=== PATIENT | male | born 1975 | race Caucasian/White ===

== ENCOUNTER 2016-05-29 11:33 | Emergency (ER) | payer OTHER ==
[~2016-05-29] VITALS: Ht 177.8 cm; Wt 97.9 kg
[~2016-05-29 11:33] MED LIST: OMEP20TA PO
[2016-05-29 11:36] VITALS: TEMP 36.5; Ht 177.8 cm; Wt 97.9 kg
[2016-05-29] MEDS ORDERED: SODIUM CHLORIDE 0.9% 1000ML 1,000 ML IV STA ×2 (11:59→13:18)
--- NOTE | 2016-05-29 12:02 | EMERGENCY ROOM VISIT NOTE ---
History First contact with patient: 11:50 Chief Complaint: DIARRHEA Stated Complaint: DIARRHEA, WEAK Nursing Triage Summary: Triage note: pt reports 'i have had diarrhea since wednesday, my guts are churning and i can't stop going to the bathroom." History of Present Illness The patient is a 41 year old male who presents to the Emergency Room with complaints of diarrhea. The patient states his diarrhea started 4 days ago. He states he has had diarrhea 15-20 times daily. He reports diffuse crampy abdominal discomfort and rates his pain at 3/10. He reports generalized weakness and feeling tired. He denies any fevers or chills. He denies any nausea or vomiting. He denies any hematemesis, melena or hematochezia. He denies any urinary symptoms. 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 He denies any travel outside of the country. He denies any recent antibiotic use. He does not have any known sick contacts. Review of Systems A 10 system review of systems was completed with positives and pertinent negatives listed in the HPI. Past Medical/Surgical History Patient denies Social History Smoking Status: Never Smoker Housing Status: lives with family Occupation Status: employed Current/Historical Medications Scheduled Metronidazole (Flagyl), 500 MG PO TID Omeprazole (Omeprazole), 20 MG PO DAILY Allergies Coded Allergies: No Known Allergies (Unverified , 06/14/14) Physical Exam Vital Signs Date Time Temp Pulse Resp B/P Pulse Ox O2 Delivery O2 Flow Rate FiO2 05/29/16 14:09 73 18 122/85 97 Room Air 05/29/16 11:36 36.5 120 18 127/91 95 Room Air Physical Exam VITALS: Vitals are noted on the nurse's note and reviewed by myself. Vital signs stable. The patient is afebrile. GENERAL: This is a 41-year-old male, in no acute distress, nondiaphoretic, well- developed well-nourished. SKIN: The skin was without rashes, erythema, edema, or bruising. There is no tenting of the skin. Capillary reflex less than 2 seconds. HEAD: Normocephalic atraumatic. EARS: The external ears are normal in appearance. EYES: Pupils equal round and reactive to light and accommodation. Conjunctivae without injection, sclerae without icterus. Extraocular movements intact. NOSE: Patent, turbinates without inflammation or discharge. MOUTH: Mucous membranes moist. Tonsils are not enlarged. Pharynx without erythema or exudate. Uvula midline. Airway patent. Tongue does not deviate. NECK: Supple without nuchal rigidity. No JVD. HEART: Regular rate and rhythm without murmurs gallops or rubs. LUNGS: Clear to auscultation bilaterally without wheezes, rales or rhonchi. No retractions or accessory muscle use. ABDOMEN: Positive bowel sounds x 4 and hyperactive. Soft, nontender, without masses or organomegaly. MUSCULOSKELETAL: No muscle atrophy, erythema, or edema noted. Full range of motion in all extremities. Normal gait. Strength 5/5 throughout. NEURO: Patient was alert and oriented to person place and time. No focal neurological deficits. Medical Decision & Procedures Laboratory Results 05/29/16 12:07 Red Blood Count 5.27, Mean Corpuscular Volume 87.5, Mean Corpuscular Hemoglobin 33.0, Mean Corpuscular Hemoglobin Concent 37.7, Mean Platelet Volume 9.2, Neutrophils (%) (Auto) 49.6, Lymphocytes (%) (Auto) 37.3, Monocytes (%) (Auto) 11.3, Eosinophils (%) (Auto) 1.3, Basophils (%) (Auto) 0.5, Neutrophils # (Auto ) 3.03, Lymphocytes # (Auto) 2.28, Monocytes # (Auto) 0.69, Eosinophils # (Auto ) 0.08, Basophils # (Auto) 0.03 05/29/16 12:07 05/29/16 13:20 Test 05/29/16 12:03 05/29/16 12:07 05/29/16 13:20 Urine Color DK YELLOW Urine Appearance CLEAR (CLEAR) Urine pH 5.5 (4.5-7.5) Urine Specific [place] 1.033 (1.000-1.030) Urine Protein 1+ (NEG) Urine Glucose (UA) NEG (NEG) Urine Ketones NEG (NEG) Urine Occult Blood NEG (NEG) Urine Nitrite NEG (NEG) Urine Bilirubin 1+ (NEG) Urine Urobilinogen NEG (NEG) Urine Leukocyte Esterase NEG (NEG) Urine WBC (Auto) 1-5 /hpf (0-5) Urine RBC (Auto) 0-4 /hpf (0-4) Urine Hyaline Casts (Auto) 10-30 /lpf (0-5) Urine Epithelial Cells (Auto) >30 /lpf (0-5) Urine Bacteria (Auto) NEG (NEG) Urine Pathogenic Casts 1-5 GRANULAR CASTS /lpf (0) White Blood Count 6.11 K/uL (4.8-10.8) Red Blood Count 5.27 M/uL (4.7-6.1) Hemoglobin 17.4 g/dL (14.0-18.0) Hematocrit 46.1 % (42-52) Mean Corpuscular Volume 87.5 fL (80-100) Mean Corpuscular Hemoglobin 33.0 pg (25-34) Mean Corpuscular Hemoglobin Concent 37.7 g/dl (32-36) Platelet Count 226 K/uL (130-400) Mean Platelet Volume 9.2 fL (7.4-10.4) Neutrophils (%) (Auto) 49.6 % Lymphocytes (%) (Auto) 37.3 % Monocytes (%) (Auto) 11.3 % Eosinophils (%) (Auto) 1.3 % Basophils (%) (Auto) 0.5 % Neutrophils # (Auto) 3.03 K/uL (1.4-6.5) Lymphocytes # (Auto) 2.28 K/uL (1.2-3.4) Monocytes # (Auto) 0.69 K/uL (0.11-0.59) Eosinophils # (Auto) 0.08 K/uL (0-0.5) Basophils # (Auto) 0.03 K/uL (0-0.2) RDW Standard Deviation 40.3 fL (36.4-46.3) RDW Coefficient of Variation 12.6 % (11.5-14.5) Immature Granulocyte % (Auto) 0.0 % Immature Granulocyte # (Auto) 0.00 K/uL (0.00-0.02) Anion Gap 6.0 mmol/L (3-11) Est Creatinine Clear Calc Drug Dose 97.0 ml/min Estimated GFR () 87.8 Estimated GFR (Non- 75.7 BUN/Creatinine Ratio 14.1 (10-20) Calcium Level 9.1 mg/dl (8.5-10.1) Total Bilirubin 0.6 mg/dl (0.2-1) Alanine Aminotransferase (ALT/SGPT) 114 U/L (12-78) Alkaline Phosphatase 143 U/L (45-117) Total Protein 8.0 gm/dl (6.4-8.2) Albumin 4.0 gm/dl (3.4-5.0) Globulin 4.0 gm/dl (2.5-4.0) Albumin/Globulin Ratio 1.0 (0.9-2) Lipase 106 U/L (73-393) Aspartate Amino Transf (AST/SGOT) 53 U/L (15-37) Medications Administered Medications (Trade) Dose Ordered Sig/Geovanny Route Start Time Stop Time Status Last Admin Dose Admin Sodium Chloride (Nss 1000ml) 1,000 ml @ 999 mls/hr Q1H1M STAT IV 05/29/16 11:59 05/29/16 12:59 DC 05/29/16 11:59 999 MLS/HR Metronidazole (Flagyl Tab) 500 mg NOW STAT PO 05/29/16 13:43 05/29/16 13:45 DC 05/29/16 14:03 500 MG ED Course The patient was seen and examined. Previous visits were reviewed. The patient does not have a fever or leukocytosis. He does not have any significant electrolyte abnormality. AST was elevated at 53, ALT was elevated at 114 and alkaline phosphatase was elevated at 143. Lipase was not elevated. Urinalysis suggests contamination. Stool was positive for C. difficile The patient did not have any acute arrhythmia or ischemia on EKG The patient was hydrated with normal saline He was given 500 mg oral Flagyl The patient presents to the emergency department with diarrhea and diffuse crampy abdominal pain. He is positive for C. difficile. He is nontoxic in appearance. Incidentally, the patient does have an elevation in his transaminases. He does not have any upper abdominal tenderness. The diffuse crampy abdominal pain and diarrhea are likely due to the C. difficile. He states he does not drink a lot of alcohol. He states he does not take Tylenol. He was advised to follow-up with a family doctor next week to repeat the liver enzymes. He'll be started on Flagyl for the C. difficile. Remaining stool cultures are pending. He should return with any fevers or worsening symptoms. The case was discussed with Dr. Tee who agrees with the assessment and treatment plan Medical Decision DIFFERENTIAL DIAGNOSIS: Hepatitis, cholecystitis, cholangitis, biliary colic, pancreatitis, pneumonia, subdiaphragmatic abscess, appendicitis, inguinal hernia , nephrolithiasis, inflammatory bowel disease, mesenteric adenitis, peptic ulcer disease, GERD, gastritis, pancreatitis, myocardial infarction, pericarditis, ruptured aortic aneurysm, appendicitis, gastroenteritis, bowel obstruction, splenic infarct, diverticulitis, mesenteric ischemia, metabolic, peritonitis, among others. Impression Primary Impression: C. difficile diarrhea Additional Impression: Abdominal pain Departure Information Dispostion Home / Self-Care Condition GOOD Prescriptions Metronidazole (Flagyl) 500 Mg Tab 500 MG PO TID for 14 Days, #42 TAB Prov: Marah Francisco PA-C 05/29/16 Referrals No Doctor, Assigned (PCP) Forms HOME CARE DOCUMENTATION FORM, IMPORTANT VISIT INFORMATION, WORK / SCHOOL INSTRUCTIONS Patient Instructions Clostridium Difficile Infec, Clostridium Difficile Toxin Stool, [facility] Additional Instructions Flagyl every 8 hours for 14 days Increase fluids and rest Contact a family doctor for a follow-up appointment in 1-2 weeks to recheck the liver function on blood work Return to the ER with worsening symptoms, fever, worsening abdominal pain Work Instructions Return To Work: 3 days Problem Qualifiers
[2016-05-29 12:25] LABS: BASO % 0.5 %; BASO ABS # 0.03 K/uL (0-0.2); COMPLETE YES; EOS % 1.3 %; HEMATOCRIT 46.1 % (42-52); LYMPH % 37.3 %; LYMPH ABS # 2.28 K/uL (1.2-3.4); MEAN CELL VOLUME 87.5 fL (80-100); MEAN CORPUSCULAR HGB CONC 37.7 g/dl (32-36); MEAN PLATELET VOLUME 9.2 fL (7.4-10.4); MONO % 11.3 %; NEUT % 49.6 %; PLATELET COUNT 226 K/uL (130-400); RED BLOOD COUNT 5.27 M/uL (4.7-6.1); WHITE BLOOD COUNT 6.11 K/uL (4.8-10.8)
[2016-05-29 12:26] LABS: URINE APPEARANCE CLEAR (CLEAR); URINE COLOR DK YELLOW; URINE EPITHELIAL CELL AUTO >30 /lpf (0-5); URINE NITRITE NEG (NEG); URINE PH 5.5 (4.5-7.5); URINE SPECIFIC GRAVITY 1.033 (1.000-1.030); UROBILINOGEN NEG (NEG); ZZUR CULT IF INDIC CLEAN CATCH NO
[2016-05-29 12:30] LABS: MANUAL MICROSCOPIC REQUIRED? NO; REVIEW REQ? YES; URINE BILIRUBIN 1+ (NEG)
[2016-05-29 12:37] LABS: URINE PATH CASTS 1-5 GRANULAR CASTS /lpf (0)
[2016-05-29 12:51] LABS: ALKALINE PHOSPHATASE 143 U/L (45-117); ALT/SGPT 114 U/L (12-78); BLOOD UREA NITROGEN 17 mg/dl (7-18); BUN/CREATININE RATIO 14.1 (10-20); CALCIUM 9.1 mg/dl (8.5-10.1); CARBON DIOXIDE 27 mmol/L (21-32); CHLORIDE 107 mmol/L (98-107); GLUCOSE 80 mg/dl (70-99); SODIUM 140 mmol/L (136-145)
[2016-05-29 13:40] LABS: POTASSIUM 3.4 mmol/L (3.5-5.1)
[2016-05-29] MEDS ORDERED: METRONIDAZOLE 250 MG TAB PO STA (13:43)
[2016-05-29] MEDS ORDERED: METR-163 PO (13:49)
[2016-05-29 14:09] VITALS: BP 122/85; PULSE 73; O2SAT 97
[2016-06-04 13:17] LABS: CRYPTOSPORIDIUM AG TC 37213 NOT DETECTED (NOT DETECTED); ISOSPORA+CYCLOSPORA NOT DETECTED; O&P GIARDIA AG NOT DETECTED (NOT DETECTED); O&P SOURCE OTHER-STOOL
== END 2016-05-29 14:10 | disposition home or self-care (01) ==
LOC: C.EDB 11:34 → C.EDA 14:10
DX: R10.9 Unspecified abdominal pain (principal); A04.7 Enterocolitis due to Clostridium difficile; Z79.899 Other long term (current) drug therapy